=== PATIENT | female | born 1975 | race Caucasian/White ===

== ENCOUNTER → 2016-10-20 | Outpatient (CLI) | payer MEDICARE | LOC: MW.CHRC 14:10 | PROVIDERS: ATTEND Family Medicine | DX: Z30.9 Encounter for contraceptive management, unspecified (principal) | CPT/HCPCS: 81025; G0463 ==

== ENCOUNTER → 2016-12-10 | Outpatient (CLI) | payer MEDICARE | LOC: MW.CHRC 08:00 | PROVIDERS: ATTEND Family Medicine | DX: J32.9 Chronic sinusitis, unspecified (principal) | CPT/HCPCS: G0463 ==

== ENCOUNTER → 2017-01-31 | Outpatient (CLI) | payer MEDICARE, OTHER ==
[2017-01-31 16:45] LABS: CHLORIDE,CL 106 mmol/L (98-110); SODIUM,NA 134 mmol/L (136-146)
== END ==
LOC: MW.CHRC 15:48
PROVIDERS: ATTEND Family Medicine
DX: L65.9 Nonscarring hair loss, unspecified (principal); E11.9 Type 2 diabetes mellitus without complications
CPT/HCPCS: 36415; 80053; 80061; 82044; 83036; 84443; 85027

== ENCOUNTER 2017-02-09 17:46 | Emergency (ER) | payer MEDICARE, OTHER ==
[2017-02-09] MEDS ORDERED: Famotidine 20 MG/2 ML SDV IVPUSH ONE (17:57)
[2017-02-09] MEDS ORDERED: Alum Hydrox/Mag Hydrox/Simeth 15 ML, Metoclopramide 5 MG, Lidocaine 2% 5 ML PO ONE ×3 (17:57)
[2017-02-09] MEDS ORDERED: Aspirin 81 MG Tab.Chew PO ONE (17:57)
[2017-02-09] MEDS ORDERED: Ketorolac 30 MG/ML SDV IVPUSH ONE (17:57)
[2017-02-09] MEDS ORDERED: Lidocaine 1% 2 ML ONE (18:39)
--- NOTE | 2017-02-09 19:39 | EDM.PDOC ---
ED HPI GENERAL MEDICAL PROBLEM - General Chief Complaint: Chest Pain Stated Complaint: CHEST PAIN Time Seen by Provider: 02/09/17 18:00 Source of Information: Reports: Patient History Limitations: Reports: No Limitations - History of Present Illness INITIAL COMMENTS - FREE TEXT/NARRATIVE: History of present illness: [41-year-old female presenting with complaints of chest pressure as well as a general feeling of being unwell. Patient states that she is on a new injectable medication for diabetes. Indicates that she is now taking Trulicity once to week and that the symptoms have started since starting that medication.] Review of systems: As per history of present illness and below otherwise all systems reviewed and negative. Past medical history: As per history of present illness and as reviewed below otherwise noncontributory. Surgical history: As per history of present illness and as reviewed below otherwise noncontributory. Social history: No reported history of drug or alcohol abuse. Family history: As per history of present illness and as reviewed below otherwise noncontributory. Physical exam: HEENT: Atraumatic, normocephalic, pupils reactive, negative for conjunctival pallor or scleral icterus, mucous membranes moist, throat clear, neck supple, nontender, trachea midline. Lungs: Clear to auscultation, breath sounds equal bilaterally, chest nontender. Heart: S1S2, regular, negative for clicks, rubs, or JVD. Abdomen: Soft, nondistended, nontender. Negative for masses or hepatosplenomegaly. Negative for costovertebral tenderness. Pelvis: Stable nontender. Genitourinary: Deferred. Rectal: Deferred. Extremities: Atraumatic, negative for cords or calf pain. Neurovascular unremarkable. Neuro: Awake, alert, oriented. Cranial nerves II through XII unremarkable. Cerebellum unremarkable. Motor and sensory unremarkable throughout. Exam nonfocal. Global assessment was benign save the subjective complaint as noted in the history of present illness. Patient does indicate that she just has general feeling of being unwell. 2043 patient indicated that she wanted to go home. This risk and benefits of going home discussed with patient, she indicated that she felt better and she truly felt that she had been experiencing side effects of the Trulicity, and that she would discontinue it on her own. Pt assured that she would followup with her primary care provider in that she felt the medication would wear off. There was a discussion of half-life of the medication and the need to follow up if she did not want to stay. Diagnostics: [Cardiac workup] Therapeutics: [] Impression: [Medication reaction] Plan: [] Definitive disposition and diagnosis as appropriate pending reevaluation and review of above. Intermittent Sternal Chest Pain Pain Score (Numeric/FACES): 4 - Related Data Allergies Allergy/AdvReac Type Severity Reaction Status Date / Time calcium Allergy Anaphylactic Verified 05/25/16 18:29 Shock cephalexin monohydrate Allergy Anaphylactic Verified 05/25/16 18:29 [From Keflex] Shock clindamycin Allergy Anaphylactic Verified 05/25/16 18:29 Shock doxycycline Allergy Anaphylactic Verified 05/25/16 18:29 Shock insulin aspart [From Novolog] Allergy Anaphylactic Verified 05/25/16 18:29 Shock insulin isophane (NPH) Allergy Anaphylactic Verified 05/25/16 18:29 [From Novolin 70/30] Shock insulin regular Allergy Anaphylactic Verified 05/25/16 18:29 [From Novolin 70/30] Shock Iodine and Iodide Containing Allergy Anaphylactic Verified 05/25/16 18:29 Produc Shock Latex, Natural Rubber Allergy Anaphylactic Verified 05/25/16 18:29 Shock Penicillins Allergy Anaphylactic Verified 05/25/16 18:29 Shock topiramate [From Topamax] Allergy Anaphylactic Verified 04/24/16 17:57 Shock preservatives Allergy Anaphylactic Uncoded 04/24/16 17:57 Shock Home Meds: Home Meds Cyclobenzaprine [Flexeril] 10 mg PO DAILY 04/24/16 [History] Insulin Lispro [HumaLOG] See Protocol SUBCUT ASDIRECTED 04/24/16 [History] Citalopram [Celexa] 40 mg PO DAILY 02/09/17 [History] Dulaglutide [Trulicity] 1.5 mg SQ WEEKLY 02/09/17 [History] Verapamil HCl [Verapamil ER] 240 mg PO DAILY 02/09/17 [History] oxyCODONE HCl/Acetaminophen [oxyCODONE-Acetaminophen 5-325] 1 - 2 tab PO Q6H PRN 02/09/17 [History] Past Medical History Cardiovascular History: Reports: Hypertension Respiratory History: Reports: Asthma Gastrointestinal History: Reports: GERD Genitourinary History: Reports: None 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: Musculoskeletal History: Reports: None, Fibromyalgia Neurological History: Reports: None Psychiatric History: Reports: Depression Endocrine/Metabolic History: Reports: Diabetes, Type II Hematologic History: Reports: None Immunologic History: Reports: None Oncologic (Cancer) History: Reports: None Dermatologic History: Reports: None - Infectious Disease History Infectious Disease History: Reports: Chicken Pox - Past Surgical History Head Surgeries/Procedures: Reports: None HEENT Surgical History: Reports: Tonsillectomy GI Surgical History: Reports: Cholecystectomy Female Surgical History: Reports: Section Musculoskeletal Surgical History: Reports: Carpal Tunnel, Shoulder Surgery Social & Family History - Family History Family Medical History: Noncontributory - Tobacco Use Smoking Status *Q: Never Smoker - Recreational Drug Use Recreational Drug Use: No ED ROS GENERAL - Review of Systems Review Of Systems: See Below (History of present illness) ED EXAM, GENERAL - Physical Exam Exam: See Below (See history of present illness) Course - Vital Signs Last Recorded V/S: Last Vital Signs Temp 36.7 C 02/09/17 17:46 Pulse 88 02/09/17 20:16 Resp 18 02/09/17 20:16 BP 131/90 02/09/17 20:16 Pulse Ox 96 02/09/17 20:16 - Orders/Labs/Meds Orders: Active Orders 24 hr Category Date Time Status EKG Documentation Completion [RC] STAT Care 02/09/17 17:57 Active Chest 2V [CR] Stat Exams 02/09/17 17:57 Taken AMYLASE [CHEM] Stat Lab 02/09/17 17:57 Ordered CBC WITH AUTO DIFF [HEME] Stat Lab 02/09/17 17:57 Ordered COMPREHENSIVE METABOLIC PN,CMP [CHEM] Stat Lab 02/09/17 17:57 Ordered INR,PT,PROTHROMBIN TIME [COAG] Stat Lab 02/09/17 17:57 Ordered LIPASE [CHEM] Stat Lab 02/09/17 17:57 Ordered TROPONIN I [CHEM] Stat Lab 02/09/17 17:57 Ordered Labs: Laboratory Tests 02/09/17 02/09/17 Range/Units 19:18 19:18 Urine Color YELLOW Urine Appearance CLEAR Urine pH 5.0 (5.0-8.0) Ur Specific [place] 1.025 (1.001-1.035) Urine Protein NEGATIVE (NEGATIVE) mg/dL Urine Glucose (UA) >=1000 (NEGATIVE) mg/dL Urine Ketones 40 H (NEGATIVE) mg/dL Urine Occult Blood SMALL H (NEGATIVE) Urine Nitrite NEGATIVE (NEGATIVE) Urine Bilirubin NEGATIVE (NEGATIVE) Urine Urobilinogen 0.2 (<2.0) EU/dL Ur Leukocyte Esterase NEGATIVE (NEGATIVE) Urine RBC 0-2 (0-2/HPF) Urine WBC 0-2 (0-5/HPF) Ur Epithelial Cells FEW (NONE-FEW) Urine Bacteria FEW (NEGATIVE) Urine HCG, Qual NEGATIVE (NEGATIVE) Meds: Medications Discontinued Medications Generic Name Dose Route Start Last Admin Trade Name Parveen PRN Reason Stop Dose Admin Aspirin 324 mg 02/09/17 17:57 02/09/17 18:15 Aspirin PO 02/09/17 17:58 324 mg ONETIME ONE Administration Al Hydroxide/Mg Hydroxide 15 0 ml 02/09/17 17:57 02/09/17 18:15 ml/ Metoclopramide HCl 5 mg/ PO 02/09/17 17:58 1 each Lidocaine HCl 5 ml ONETIME ONE Administration Famotidine 20 mg 02/09/17 17:57 02/09/17 20:01 Pepcid IVPUSH 02/09/17 17:58 20 mg ONETIME ONE Administration Lidocaine HCl Confirm 02/09/17 18:39 Xylocaine-Mpf 1% Administered 02/09/17 18:40 Dose 2 mls @ as directed .ROUTE .STK-MED ONE Ketorolac Tromethamine 30 mg 02/09/17 17:57 02/09/17 20:04 Toradol IVPUSH 02/09/17 17:58 30 mg ONETIME ONE Administration Departure - Departure Time of Disposition: 20:47 Disposition: Home, Self-Care 01 Condition: good Clinical Impression: Atypical chest pain Forms: ED Department Discharge Additional Instructions: The following information is given to patients seen in the emergency department who are being discharged to home. This information is to outline your options for follow-up care. We provide all patients seen in our emergency department with a follow-up referral. The need for follow-up, as well as the timing and circumstances, are variable depending upon the specifics of your emergency department visit. If you don't have a primary care physician on staff, we will provide you with a referral. We always advise you to contact your personal physician following an emergency department visit to inform them of the circumstance of the visit and for follow-up with them and/or the need for any referrals to a consulting specialist. The emergency department will also refer you to a specialist when appropriate. This referral assures that you have the opportunity for follow-up care with a specialist. All of these measure are taken in an effort to provide you with optimal care, which includes your follow-up. Under all circumstances we always encourage you to contact your private physician who remains a resource for coordinating your care. When calling for follow-up care, please make the office aware that this follow-up is from your recent emergency room visit. If for any reason you are refused follow-up, please contact the [facility] Emergency Department at and asked to speak to the emergency department charge nurse. Followup tomorrow with your primary care provider as discussed Return to ED as needed as discussed - My Orders Last 24 Hours: My Active Orders 02/09/17 17:57 EKG Documentation Completion [RC] STAT Chest 2V [CR] Stat AMYLASE [CHEM] Stat CBC WITH AUTO DIFF [HEME] Stat COMPREHENSIVE METABOLIC PN,CMP [CHEM] Stat INR,PT,PROTHROMBIN TIME [COAG] Stat LIPASE [CHEM] Stat TROPONIN I [CHEM] Stat - Assessment/Plan Last 24 Hours: My Active Orders 02/09/17 17:57 EKG Documentation Completion [RC] STAT Chest 2V [CR] Stat AMYLASE [CHEM] Stat CBC WITH AUTO DIFF [HEME] Stat COMPREHENSIVE METABOLIC PN,CMP [CHEM] Stat INR,PT,PROTHROMBIN TIME [COAG] Stat LIPASE [CHEM] Stat TROPONIN I [CHEM] Stat
--- NOTE | 2017-02-09 19:53 | PCM.SN ---
- Free Text/Narrative Note: Anesthesia Note: Called by Linoleum Installer for difficult IV placement. Pt states last time it took 5x's under ultrasound per anesthesia. Pt has superficial veins that appear good for placement, but unable to catheterize the vein with a 22 ga. Total of 4 sticks per Nava Johnson CRNA (R FA, AC, deep brachial - 1% lido used, L hand). Dr. Junior called for assistance. Pt states that she is refusing to allow us to place an IV in her neck or legs/feet. 1 attempt to R hand was unsuccessful, but successful with 22Ga to L AC. Unable to obtain enough blood for lab. Flushes easily, secured with tape and saline locked. Care turned over to nursing.
[2017-02-10 02:34] VITALS: BP 141/87
--- NOTE | 2017-02-10 14:32 | CR ---
EXAM DATE: 02/09/17 PATIENT'S AGE: 41 Patient: MALISSA BASILIO Facility: [place], [place] Site . Site : 1975 Study: XRay Chest [id number]/24/2017 8:14:29 PM Ordering Physician: Doctor Driver Final Report: INDICATION: chest pain, nausea, vomiting TECHNIQUE: Chest 2 views. COMPARISON: 05/22/16 FINDINGS: Cardiovascular and mediastinum: Heart size and vasculature are normal in caliber and appearance. Mediastinum is within normal limits. Lungs and pleural spaces: Lungs are clear. No sign of infiltrate or mass. No sign of pleural effusion. No pneumothorax. Bones and soft tissues: No significant findings. IMPRESSION: Unremarkable chest. Dictated by: Cesar Huang MD @ 02/09/2017 20:51:43 (Electronic Signature) Report Signed by Proxy. CHAYA
== END 2017-02-09 21:05 | disposition home or self-care (01) ==
LOC: MW.ED 17:46
DX: R07.89 Other chest pain (principal); I10 Essential (primary) hypertension; J45.909 Unspecified asthma, uncomplicated; K21.9 Gastro-esophageal reflux disease without esophagitis; E11.9 Type 2 diabetes mellitus without complications; F32.9 Major depressive disorder, single episode, unspecified; Z79.4 Long term (current) use of insulin; Z79.899 Other long term (current) drug therapy; Z88.0 Allergy status to penicillin; Z88.1 Allergy status to other antibiotic agents; Z88.8 Allergy status to other drugs, medicaments and biological substances; Z91.040 Latex allergy status; Z90.49 Acquired absence of other specified parts of digestive tract; Z98.890 Other specified postprocedural states
CPT/HCPCS: 71020; 81001; 81025; 93005; 96374; 96375; 99285; A9270; J1885; 36410; 99284

== ENCOUNTER 2017-08-21 13:27 | Emergency (ER) | payer OTHER, MEDICARE ==
[2017-08-21 13:52] VITALS: BP 130/91
[2017-08-21] MEDS ORDERED: Ketorolac 60 MG/2 ML SDV IM ONE (13:52)
--- NOTE | 2017-08-21 13:59 | EDM.PDOC ---
ED HPI GENERAL MEDICAL PROBLEM - General Chief Complaint: Headache Stated Complaint: MIGRAINE Time Seen by Provider: 08/21/17 13:31 Source of Information: Reports: Patient History Limitations: Reports: No Limitations - History of Present Illness INITIAL COMMENTS - FREE TEXT/NARRATIVE: History of present illness: []Patient has a history of migraines and developed a migraine yesterday. It's her typical migraine today she took pain medicines and her pain is now 7 out of 10 where it has remained. She denies any vomiting, diarrhea or fevers. She complains of left ear pain which is chronic. Review of systems: As per history of present illness and below otherwise all systems reviewed and negative. Past medical history: As per history of present illness and as reviewed below otherwise noncontributory. Surgical history: As per history of present illness and as reviewed below otherwise noncontributory. Social history: No reported history of drug or alcohol abuse. Family history: As per history of present illness and as reviewed below otherwise noncontributory. Physical exam: General: Well developed, well nourished in NAD HEENT: Atraumatic, normocephalic, pupils reactive, negative for conjunctival pallor or scleral icterus, mucous membranes moist, throat clear, neck supple, nontender, trachea midline. Lungs: Clear to auscultation, breath sounds equal bilaterally, chest nontender. Heart: S1S2, regular, negative for clicks, rubs, or JVD. Abdomen: Soft, nondistended, nontender. Negative for masses or hepatosplenomegaly. Negative for costovertebral tenderness. Pelvis: Stable nontender. Genitourinary: Deferred. Rectal: Deferred. Extremities: Atraumatic, negative for cords or calf pain. Neurovascular unremarkable. Neuro: Awake, alert, oriented. Cranial nerves II through XII unremarkable. Cerebellum unremarkable. Motor and sensory unremarkable throughout. Exam nonfocal. Diagnostics: [] Therapeutics: []Toradol IM Impression: []Migraine typical Plan: []Follow-up with primary care continue regular meds as directed and return if symptoms worsen or change Definitive disposition and diagnosis as appropriate pending reevaluation and review of above. Headache Pain Score (Numeric/FACES): 7 - Related Data Allergies Allergy/AdvReac Type Severity Reaction Status Date / Time calcium Allergy Anaphylactic Verified 08/21/17 13:52 Shock cephalexin monohydrate Allergy Anaphylactic Verified 08/21/17 13:52 [From Keflex] Shock clindamycin Allergy Anaphylactic Verified 08/21/17 13:52 Shock doxycycline Allergy Anaphylactic Verified 08/21/17 13:52 Shock insulin aspart [From Novolog] Allergy Anaphylactic Verified 08/21/17 13:52 Shock insulin isophane (NPH) Allergy Anaphylactic Verified 08/21/17 13:52 [From Novolin 70/30] Shock insulin regular Allergy Anaphylactic Verified 08/21/17 13:52 [From Novolin 70/30] Shock Iodine and Iodide Containing Allergy Anaphylactic Verified 08/21/17 13:52 Produc Shock Latex, Natural Rubber Allergy Anaphylactic Verified 08/21/17 13:52 Shock Penicillins Allergy Anaphylactic Verified 08/21/17 13:52 Shock topiramate [From Topamax] Allergy Anaphylactic Verified 08/21/17 13:52 Shock preservatives Allergy Anaphylactic Uncoded 04/24/16 17:57 Shock Home Meds: Home Meds Cyclobenzaprine [Flexeril] 10 mg PO DAILY 04/24/16 [History] Insulin Lispro [HumaLOG] See Protocol SUBCUT ASDIRECTED 04/24/16 [History] Citalopram [Celexa] 40 mg PO DAILY 02/09/17 [History] Dulaglutide [Trulicity] 1.5 mg SQ WEEKLY 02/09/17 [History] Verapamil HCl [Verapamil ER] 240 mg PO DAILY 02/09/17 [History] oxyCODONE HCl/Acetaminophen [oxyCODONE-Acetaminophen 5-325] 1 - 2 tab PO Q6H PRN 02/09/17 [History] Past Medical History Cardiovascular History: Reports: Hypertension Respiratory History: Reports: Asthma Gastrointestinal History: Reports: GERD Genitourinary History: Reports: None 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: Musculoskeletal History: Reports: None, Fibromyalgia Neurological History: Reports: None Psychiatric History: Reports: Depression Endocrine/Metabolic History: Reports: Diabetes, Type II Hematologic History: Reports: None Immunologic History: Reports: None Oncologic (Cancer) History: Reports: None Dermatologic History: Reports: None - Infectious Disease History Infectious Disease History: Reports: Chicken Pox - Past Surgical History Head Surgeries/Procedures: Reports: None HEENT Surgical History: Reports: Tonsillectomy GI Surgical History: Reports: Cholecystectomy Female Surgical History: Reports: Section Musculoskeletal Surgical History: Reports: Carpal Tunnel, Shoulder Surgery Social & Family History - Family History Family Medical History: Noncontributory - Tobacco Use Smoking Status *Q: Never Smoker - Recreational Drug Use Recreational Drug Use: No ED ROS GENERAL - Review of Systems Review Of Systems: See Below (See history of present illness) - Physical Exam Exam: See Below (See history of present illness) Course - Vital Signs Last Recorded V/S: Last Vital Signs Temp 96.4 F 08/21/17 13:50 Pulse 86 08/21/17 13:50 Resp 18 08/21/17 13:50 BP 130/91 H 08/21/17 13:50 Pulse Ox 99 08/21/17 13:50 - Orders/Labs/Meds Meds: Medications Discontinued Medications Generic Name Dose Route Start Last Admin Trade Name Freq PRN Reason Stop Dose Admin Ketorolac Tromethamine 60 mg 08/21/17 13:52 08/21/17 14:04 Toradol IM 08/21/17 13:53 60 mg ONETIME ONE Administration Departure - Departure Time of Disposition: 14:26 Disposition: Home, Self-Care 01 Condition: Good Clinical Impression: Migraine headache Qualifiers: Migraine type: unspecified Status migrainosus presence: without status migrainosus Intractability: not intractable Qualified Code(s): G43.909 - Migraine, unspecified, not intractable, without status migrainosus - Discharge Information Referrals: Michelle Arreola MD [Primary Care Provider] - Forms: ED Department Discharge Additional Instructions: The following information is given to patients seen in the emergency department who are being discharged to home. This information is to outline your options for follow-up care. We provide all patients seen in our emergency department with a follow-up referral. The need for follow-up, as well as the timing and circumstances, are variable depending upon the specifics of your emergency department visit. If you don't have a primary care physician on staff, we will provide you with a referral. We always advise you to contact your personal physician following an emergency department visit to inform them of the circumstance of the visit and for follow-up with them and/or the need for any referrals to a consulting specialist. The emergency department will also refer you to a specialist when appropriate. This referral assures that you have the opportunity for follow-up care with a specialist. All of these measure are taken in an effort to provide you with optimal care, which includes your follow-up. Under all circumstances we always encourage you to contact your private physician who remains a resource for coordinating your care. When calling for follow-up care, please make the office aware that this follow-up is from your recent emergency room visit. If for any reason you are refused follow-up, please contact the Emergency Department at and asked to speak to the emergency department charge nurse. Take Excedrin Migraine for pain if any pain recurs. Increase fluids use ice pack to head. You may return to work tonight. Primary Care [address] [place] [id number]
== END 2017-08-21 14:58 | disposition home or self-care (01) ==
LOC: MW.ED 13:27
DX: G43.909 Migraine, unspecified, not intractable, without status migrainosus (principal); I10 Essential (primary) hypertension; E11.9 Type 2 diabetes mellitus without complications; Z88.6 Allergy status to analgesic agent; Z88.1 Allergy status to other antibiotic agents; Z91.040 Latex allergy status; Z88.0 Allergy status to penicillin; Z79.899 Other long term (current) drug therapy
CPT/HCPCS: 96372; 99283; J1885; 99282

== ENCOUNTER 2017-11-10 19:07 | Emergency (ER) | payer OTHER, MEDICARE ==
--- NOTE | 2017-11-10 19:49 | EDM.PDOC ---
ED HPI GENERAL MEDICAL PROBLEM - General Stated Complaint: SWELLING IN FEET Time Seen by Provider: 11/10/17 19:44 - History of Present Illness INITIAL COMMENTS - FREE TEXT/NARRATIVE: HISTORY AND PHYSICAL: History of present illness: Patient's 42-year-old female with history of diabetes and history of dependent edema presents with concern of swelling of her feet bilaterally was no shortness of breath chest pain or other concern she denies trauma fever chills nausea vomiting diarrhea or other complaints. She states she does have support stockings and has been using them. Her chief complaint relates to a work note due to the discomfort related to the edema. She does agree to some routine diagnostic tests while she's here. Review of systems: As per history of present illness and below otherwise all systems reviewed and negative. Past medical history: As per history of present illness and as reviewed below otherwise noncontributory. Surgical history: As per history of present illness and as reviewed below otherwise noncontributory. Social history: No reported history of drug or alcohol abuse. Family history: As per history of present illness and as reviewed below otherwise noncontributory. Physical exam: HEENT: Atraumatic, normocephalic, pupils reactive, negative for conjunctival pallor or scleral icterus, mucous membranes moist, throat clear, neck supple, nontender, trachea midline. Lungs: Clear to auscultation, breath sounds equal bilaterally, chest nontender. Heart: S1S2, regular, negative for clicks, rubs, or JVD. Abdomen: Soft, nondistended, nontender. Negative for masses or hepatosplenomegaly. Negative for costovertebral tenderness. Pelvis: Stable nontender. Genitourinary: Deferred. Rectal: Deferred. Extremities: Patient is noted have 1+ edema or inferior extremities CMS neurovascular exams unremarkable Neuro: Awake, alert, oriented. Cranial nerves II through XII unremarkable. Cerebellum unremarkable. Motor and sensory unremarkable throughout. Exam nonfocal. Diagnostics: CBC CMP BNP chest x-ray EKG UA Therapeutics: None Impression: 1 dependent edema #2 history of diabetes Definitive disposition and diagnosis as appropriate pending reevaluation and review of above. Bilateral Knee Pain Score (Numeric/FACES): 8 - Related Data Allergies Allergy/AdvReac Type Severity Reaction Status Date / Time calcium Allergy Anaphylactic Verified 08/21/17 13:52 Shock cephalexin monohydrate Allergy Anaphylactic Verified 08/21/17 13:52 [From Keflex] Shock clindamycin Allergy Anaphylactic Verified 08/21/17 13:52 Shock doxycycline Allergy Anaphylactic Verified 08/21/17 13:52 Shock insulin aspart [From Novolog] Allergy Anaphylactic Verified 08/21/17 13:52 Shock insulin isophane (NPH) Allergy Anaphylactic Verified 08/21/17 13:52 [From Novolin 70/30] Shock insulin regular Allergy Anaphylactic Verified 08/21/17 13:52 [From Novolin 70/30] Shock Iodine and Iodide Containing Allergy Anaphylactic Verified 08/21/17 13:52 Produc Shock Latex, Natural Rubber Allergy Anaphylactic Verified 08/21/17 13:52 Shock Penicillins Allergy Anaphylactic Verified 08/21/17 13:52 Shock topiramate [From Topamax] Allergy Anaphylactic Verified 08/21/17 13:52 Shock preservatives Allergy Anaphylactic Uncoded 04/24/16 17:57 Shock Home Meds: Home Meds Cyclobenzaprine [Flexeril] 10 mg PO DAILY 04/24/16 [History] Insulin Lispro [HumaLOG] See Protocol SUBCUT ASDIRECTED 04/24/16 [History] Citalopram [Celexa] 40 mg PO DAILY 02/09/17 [History] Dulaglutide [Trulicity] 1.5 mg SQ WEEKLY 02/09/17 [History] Verapamil HCl [Verapamil ER] 240 mg PO DAILY 02/09/17 [History] oxyCODONE HCl/Acetaminophen [oxyCODONE-Acetaminophen 5-325] 1 - 2 tab PO Q6H PRN 02/09/17 [History] Past Medical History Cardiovascular History: Reports: Hypertension Respiratory History: Reports: Asthma Gastrointestinal History: Reports: GERD Genitourinary History: Reports: None 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: Musculoskeletal History: Reports: None, Fibromyalgia Neurological History: Reports: None Psychiatric History: Reports: Depression Endocrine/Metabolic History: Reports: Diabetes, Type II Hematologic History: Reports: None Immunologic History: Reports: None Oncologic (Cancer) History: Reports: None Dermatologic History: Reports: None - Infectious Disease History Infectious Disease History: Reports: Chicken Pox - Past Surgical History Head Surgeries/Procedures: Reports: None HEENT Surgical History: Reports: Tonsillectomy GI Surgical History: Reports: Cholecystectomy Female Surgical History: Reports: Section Musculoskeletal Surgical History: Reports: Carpal Tunnel, Shoulder Surgery Social & Family History - Family History Family Medical History: Noncontributory - Tobacco Use Smoking Status *Q: Never Smoker - Recreational Drug Use Recreational Drug Use: No ED ROS GENERAL - Review of Systems Review Of Systems: ROS reveals no pertinent complaints other than HPI. ED EXAM, GENERAL - Physical Exam Exam: See Below (See dictation) Course - Vital Signs Last Recorded V/S: Last Vital Signs Temp 36.6 C 11/10/17 19:44 Pulse 89 11/10/17 19:44 Resp 20 11/10/17 19:44 BP 196/96 H 11/10/17 19:44 Pulse Ox 96 11/10/17 19:44 - Orders/Labs/Meds Orders: Active Orders 24 hr Category Date Time Status Chest 1V Frontal [CR] Stat Exams 11/10/17 19:46 Ordered B-TYPE NATRIURETIC PEPTIDE,BNP [CHEM] Stat Lab 11/10/17 19:46 Ordered CBC WITH AUTO DIFF [HEME] Stat Lab 11/10/17 19:46 Ordered COMPREHENSIVE METABOLIC PN,CMP [CHEM] Stat Lab 11/10/17 19:46 Ordered UA W/MICROSCOPIC [URIN] Stat Lab 11/10/17 19:46 Ordered Departure - Departure Time of Disposition: 19:48 Disposition: Home, Self-Care 01 Condition: Good Clinical Impression: Dependent edema, Diabetes - Discharge Information Referrals: PCP,None [Primary Care Provider] - Additional Instructions: The following information is given to patients seen in the emergency department who are being discharged to home. This information is to outline your options for follow-up care. We provide all patients seen in our emergency department with a follow-up referral. The need for follow-up, as well as the timing and circumstances, are variable depending upon the specifics of your emergency department visit. If you don't have a primary care physician on staff, we will provide you with a referral. We always advise you to contact your personal physician following an emergency department visit to inform them of the circumstance of the visit and for follow-up with them and/or the need for any referrals to a consulting specialist. The emergency department will also refer you to a specialist when appropriate. This referral assures that you have the opportunity for followup care with a specialist. All of these measure are taken in an effort to provide you with optimal care, which includes your followup. Under all circumstances we always encourage you to contact your private physician who remains a resource for coordinating your care. When calling for followup care, please make the office aware that this follow-up is from your recent emergency room visit. If for any reason you are refused follow-up, please contact the [facility] emergency department at and asked to speak to the emergency department charge nurse. Follow-up primary medical doctor 1-2 days keep leg elevated as discussed support stockings as discussed continue current medications and return as needed as discussed - My Orders Last 24 Hours: My Active Orders 11/10/17 19:46 Chest 1V Frontal [CR] Stat B-TYPE NATRIURETIC PEPTIDE,BNP [CHEM] Stat CBC WITH AUTO DIFF [HEME] Stat COMPREHENSIVE METABOLIC PN,CMP [CHEM] Stat UA W/MICROSCOPIC [URIN] Stat - Assessment/Plan Last 24 Hours: My Active Orders 11/10/17 19:46 Chest 1V Frontal [CR] Stat B-TYPE NATRIURETIC PEPTIDE,BNP [CHEM] Stat CBC WITH AUTO DIFF [HEME] Stat COMPREHENSIVE METABOLIC PN,CMP [CHEM] Stat UA W/MICROSCOPIC [URIN] Stat
[2017-11-10 20:30] LABS: CHLORIDE,CL 107 mmol/L (98-110); SODIUM,NA 138 mmol/L (136-146)
[2017-11-10 20:42] VITALS: BP 173/89
--- NOTE | 2017-11-11 15:38 | CR ---
EXAM DATE: 11/10/17 PATIENT'S AGE: 42 Patient: MALISSA BASILIO Facility: [place], [place] Site . Site : [id number] Study: XRay Chest [id number] 8:20:17 PM Ordering Physician: Baljit Haider Final Report: INDICATION: swelling in bilateral feet CHEST, ONE VIEW An AP radiograph of the chest was performed. Comparison: 02/09/2017. The lungs appear clear and no pleural effusions are identified. The cardiomediastinal silhouette and pulmonary vasculature appear normal, as do the visualized bones. IMPRESSION: No acute intrathoracic abnormality identified. SERAFIN MADISON MD [facility] Dictated by: Rm Madison MD @ 11/10/2017 20:28:09 (Electronic Signature) Report Signed by Proxy. [facility]
== END 2017-11-10 20:43 | disposition home or self-care (01) ==
LOC: MW.ED 19:07
DX: R60.0 Localized edema (principal); I10 Essential (primary) hypertension; E11.9 Type 2 diabetes mellitus without complications; Z88.1 Allergy status to other antibiotic agents; Z91.040 Latex allergy status; Z88.0 Allergy status to penicillin; Z88.8 Allergy status to other drugs, medicaments and biological substances; Z79.899 Other long term (current) drug therapy
CPT/HCPCS: 36415; 71045; 71045-26; 80053; 81001; 83880; 85025; 99284